=== PATIENT | female | born 1945 | race Caucasian/White ===

== ENCOUNTER 2019-05-17 14:41 | Inpatient (IN) | payer MEDICARE, OTHER ==
[~2019-05-17] VITALS: Ht 157.5 cm; Wt 100.1 kg
--- NOTE | ~2019-05-17 | CON ---
[address] [address] CONSULTATION Name: RAJWINDER MONTALVO Room: [address] IN .R.#: [id number] Admission: 05/17/19 Attend Phys: Jayden Hair MD Discharge: Date of : 49 Report #: [id number] THIS REPORT FOR: //name// CC: Tiffany Hair DICTATED BY: Mary Amador [facility] DATE OF SERVICE: 05/18/2019 Please note at the time of this dictation, the patient was seen and physically examined by myself. REASON FOR CONSULTATION: Nausea and vomiting and explosive diarrhea. HISTORY OF PRESENT ILLNESS: This is a 73-year-old female who presented to the Emergency Room with having some mid substernal chest pain with left shoulder radiation associated with radiation to the jaw. She states this occurred at rest and persisted since 1:00 yesterday afternoon before she was seen in the Emergency Room. She states that was waxing and waning in quality at that time. The patient does have a history of SVT and takes metoprolol for that. The patient recently did see Dr. Edmonds in the office on 05/15. She is scheduled for an outpatient EGD on 06/07. The patient states that her chest pain has gone away, but then she started having nausea and vomiting throughout the night with explosive diarrhea, she states this is a typical cycle for her that when she does not have anything to eat or drink solid food mercado. After 5-6 hours, she will start beginning to have nausea and vomiting with this explosive diarrhea, denying any bright red blood or any coffee ground emesis or any black tarry stools noted with her diarrhea. She states this always happens when this occurs and that once she starts gradually adding solid food back into her diet, her symptoms go away. She states this has been happening for a very long period of time. Currently, it was recommended by Cardiology that she has a heart catheterization, but she did not want to do that. She was agreeable to have an echocardiogram and will discuss having a heart catheterization as an outpatient. Did discuss with the patient that since she came in with chest pain that she would need to be fully evaluated by Cardiology and we will need to obtain cardiac clearance prior to her having an EGD done on 06/07 or this may need to be postponed. ALLERGIES: GUAIFENESIN, BENADRYL, ZOFRAN, AND CIPRO. MEDICATIONS: From home include metoprolol, Pepcid and acidophilus. PAST MEDICAL HISTORY: Type 2 diabetes, complex pain syndrome, SVT, depression, anxiety. She has got valvular heart [place] [address] CONSULTATION Name: RAJWINDER MONTALVO Room: [address] IN [facility]#: [id number] Admission: 05/17/19 Attend Phys: Jayden Hair MD Discharge: Date of : 49 Report #: [id number] PAST SURGICAL HISTORY: Cholecystectomy, appendectomy, tonsil and adenoidectomy. FAMILY HISTORY: Noncontributory. SOCIAL HISTORY: Denies any alcohol, tobacco or illegal drug use. REVIEW OF SYSTEMS: Twelve-point review of systems is essentially negative except what is mentioned in the HPI. PHYSICAL EXAMINATION: VITAL SIGNS: Temperature 37.1, pulse 96, respirations 17, blood pressure 153/76. HEART: Regular rate and rhythm. LUNGS: Clear. ABDOMEN: Soft, positive bowel sounds in all 4 quadrants with no masses or tenderness noted. LABORATORY DATA: Hemoglobin 13.6, white count 8.9, platelets 234. PT 10.2, INR is 1, GFR is 71. LFTs are completely normal. Troponin was negative. IMPRESSION: 1. Nausea and vomiting. 2. Diarrhea occurs when nausea and vomiting occur. 3. Chest pain, which is resolved. PLAN: 1. No endoscopic evaluation warranted at this time until she has her cardiac workup performed. 2. We will advance her diet to soft. 3. The patient is already scheduled for an outpatient EGD on 06/07, but again will need to have a cardiac clearance since she was just here being seen for chest pain prior to this procedure. The patient is made aware of this as well. Thank you for allowing us to participate in this patient's care. Please do not hesitate to call with any questions in regard to this consult. By: [id number] Edmonds DO /candace
[~2019-05-17 14:41] MED LIST: IBUPROFEN 800800 M1; KEFLEX500 MG; MULTIVITAMINS; PROAIR HFA8.5 GM IH; SERTRALINE HCL50 MG; TOPROL XL100 MG PO; TRILEPTAL 300300 MG PO; ZOFRAN ODT4 MG PO; ZPAK PO
[2019-05-17 14:45] VITALS: BP 178/73
[2019-05-17] MEDS ORDERED: TRILEPTAL600 MG PO (14:54)
[2019-05-17] MEDS ORDERED: ACIDOPHILUS1 EAC4 PO (14:55)
[2019-05-17] MEDS ORDERED: PEPCID40 MG PO (14:55)
[2019-05-17 16:05] LABS: ABSOLUTE EOSINOPHILS 0.1 thou/uL (0.0-0.7); ABSOLUTE MONOCYTES 0.6 thou/uL (0.0-1.2); ABSOLUTE NEUTROPHILS 5.1 thou/uL (1.6-8.1); BASOPHILS 0.5 %; EOSINOPHILS 0.9 %; HEMOGLOBIN 13.6 gm/dL (12.0-15.0); LYMPHOCYTES 34.1 %; MCH 28.1 pg (26.0-34.0); MCV 82.7 fL (80.0-100.0); MPV 7.6 fl. (7.2-11.1); NUCLEATED RBCS 0 /100WBC; PLATELET COUNT* 234 thou/uL (150-400); POLYS 57.5 %; RBC 4.84 mil/uL (4.20-5.00); RDW-CV 13.4 % (10.5-14.5); WBC 8.9 thou/uL (4.0-11.0)
[2019-05-17 16:10] LABS: ANION GAP 9 mmol/L (7-16); BUN 12 mg/dL (7-18); CALCIUM 9.3 mg/dL (8.5-10.1); CHLORIDE 96 mmol/L (98-107); CO2 28 mmol/L (21-32); CREATININE 0.8 mg/dL (0.6-1.3); GLUCOSE 196 mg/dL (70-99); POTASSIUM 3.6 mmol/L (3.5-5.1); SODIUM 133 mmol/L (136-145)
[2019-05-17 16:15] LABS: PROTIME 10.2 Seconds (9.20-11.50)
[2019-05-17 16:20] LABS: ALBUMIN 3.5 g/dL (3.4-5.0); ALKALINE PHOSPHATASE 50 U/L (46-116); LIPASE 90 U/L (73-393); SGOT 13 U/L (15-37); SGPT 23 U/L (30-65); TOTAL BILIRUBIN 0.3 mg/dL (<0.1-1.0); TOTAL PROTEIN 7.1 g/dL (6.4-8.2); TROPONIN-I LEVEL <0.06 ng/mL (<0.06)
[2019-05-17 20:30] VITALS: BP 160/80
[2019-05-17 20:35] VITALS: BP 154/78
[2019-05-18 04:00] VITALS: BP 153/76
[2019-05-18 04:48] LABS: CHOLESTEROL 258 mg/dL (<200); HDL CHOLESTEROL 51 mg/dL (>40); LDL CHOLESTEROL 185 mg/dL (<100); TC:HDL 5.1 Ratio (Not establshd); TRIGLYCERIDE 111 mg/dL (<150); VLDL 22 mg/dL (<40)
[2019-05-18 04:57] LABS: SERUM ASSESSMENT CLEAR
--- NOTE | 2019-05-18 06:10 | NUR ---
PT ALERT AND ORIENTED. VSS ON 2L NC. ADMISSION HX AND ASSESSMENT DOCUMENTED. MEDS GIVEN PER EMAR. SO HYDRALAZINE HAVE NOT BEEN INDICATED. THERE NONE HAS BEEN GIVEN THIS SHIFT. NPO AFTER MIDNIGHT. CARDIOLOGY CONSULT CALLED IN. MED RECONCILIATION DONE. PT INSISTED ON GETTING NIGHT DOSE OF TRILEPTAL LAST NIGHT. SAID SHE WOULD LEAVE AMA IF NOT BROUGHT TO HER. DR ERWIN NOTIFIED. ORDER PUT IN. PT GIVEN TRILEPTAL. BP CHECKED MANUALLY UPON ADMISSION PER PT'S REQUEST. PT COMPLAINED OF HEADACHE BUT REFUSED MEDS FOR IT. ICE PACK PROVIDED PER PT'S REQUEST. CALL LIGHT WITHIN REACH. PT CALLS OUT FREQUENTLY. HOURLY ROUNDINGS MADE. WILL CONTINUE TO MONITOR.
[2019-05-18 09:02] VITALS: BP 154/71
--- NOTE | 2019-05-18 09:15 | NUR ---
ASSUMED CARE AFTER REPORT. OX4, VERY ANXIOUS, ABLE TO COMMUNICATE BASIC NEEDS. 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 O2 SATS 98% 1L. STATES "I HAVE BEEN THROWING EVERY TWO HOURS UP ALL NIGHT." EMESIS BAG AT BS IS 1/2 FULL WITH KLEENEX AND SMALL AMOUNT OF LIQUID, ESTIMATED >20 MLS. REFUSING PHENERGAN. NO C/O CHEST PAIN OR SOA. CALL LIGHT WITHIN REACH.
--- NOTE | 2019-05-18 10:15 | NUR ---
CONTACTED DR. BROOKS TO INFORM PATIENT HAS DECLINED CATH TODAY. PATIENT STATES, "I NEED TO GO HOME AND GET MY AFFAIRS IN ORDER AND MAKE SURE MY FRIEND CAN TAKE CARE OF ME WHEN I GET HOME. THEY CAN SCHEDULE THE CATH LATER." PATIENT AGREEABLE TO ECHO. PATIENT STATES "I NEED TO GET THIS EXPLOSIVE DIARRHEA AND THROWING UP TAKEN CARE OF BEFORE I GO FOR A CATH." PATIENT HAD ONE EPISODE OF URGENCY, BM LOOSE BUT FORMED. DRY HEAVES WITNESSED WHILE PATIENT ON TOILET. CONTINUES TO REFUSE PHERGAN. PATIENT STATES "FOR 50 YEARS, I KNOW WHAT WILL FIX THIS. I NEED SOME SOLID FOOD." GI EMPLOYMENT AGENCY MANAGER TO ROOM TO ASSESS PATIENT. OK FOR PATIENT TO ADVANCE TO SOFT DIET PER GI EMPLOYMENT AGENCY MANAGER.
--- NOTE | 2019-05-18 10:34 | EKG ---
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 : 1945 Requested By: Katlyn Singh Order Number: [id number] MD: Johnnie Lee Measurements Intervals [place] Rate: 78 P: 49 ID: 167 QRS: 65 QRSD: 164 T: 4 QT: 420 QTc: 479 Interpretive Statements Sinus rhythm Right bundle branch block Compared to ECG 01/07/2011 10:52:57 Ventricular premature complex(es) no longer present Electronically Signed On 05-18-2019 10:34:29 CDT by Johnnie Lee [email or web address] <ELECTRONICALLY SIGNED> By: Johnnie Lee MD, [facility] 05/18/19 1034 1449 1449 Johnnie Lee MD, [facility] /EPI
--- NOTE | 2019-05-18 11:47 | NUR ---
MET WITH PT TO DISCUSS HOME SITUATION/DC PLANNING. PT LIVES ALONE, HAS FAMILY OUT OF STATE. PT STATES SHE HAS GOOD FRIENDS THAT SHE CAN CALL ON FOR ASSISTANCE AND ONE THAT HELPS CLEAN HER HOME. PT FOLLOWS WITH DR JOYNER. HASN'T HAD HH, DISCUSSED. PT STATES SHE HAS HAD INCREASED DIFFICULTY MANAGING MEALS. GAVE HER INFO ON [employer], MEALS ON WHEELS AND [employer]. SHE WANTS TO CONSIDER THOSE. ALSO GAVE INFO AND ED ON DPOA, LEFT WITH PT. SHE WILL CONTACT IF WANTS TO COMPLETE. PT IS INDEPENDENT, HAS WALKER. 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 PT ANXIOUS AND EMOTIONAL TODAY, SUPPORT GIVEN, PT VOICED APPRECIATION. CM TO FOLLOW
[2019-05-18 12:00] VITALS: BP 177/67
--- NOTE | 2019-05-18 14:49 | 2DMMODE ---
[address] [address] 2 D/M-MODE ECHOCARDIOGRAM Name: RAJWINDER MONTALVO Room: [place] [address] ADM IN [facility]#: [id number] Admission: 05/17/19 Attend Phys: Jayden Hair, Discharge: Date of : 49 Date of Service: 05/18/19 1449 Report #: [id number] THIS REPORT FOR: //name// APPROVED REPORT Study performed: 05/18/2019 13:43:50 EXAM: Comprehensive 2D, Doppler, and color-flow Echocardiogram Patient Location: In-Patient Room #: [facility] Status: routine BSA: 1.99 HR: 98 bpm BP: 177/67 mmHg Rhythm: NSR Other Information Study Quality: Good Indications Murmur 2D Dimensions IVSd: 9.52 (7-11mm) LVOT Diam: 19.81 (18-24mm) LVDd: 46.81 mm PWd: 9.82 (7-11mm) Ascending Ao: 28.57 (22-36mm) LVDs: 23.95 (25-40mm) Aortic Root: 30.33 mm Volumes Left Atrial Volume (Systole) LA ESV Index: 25.80 mL/m2 Aortic Valve AoV Peak Parth.: 2.38 m/s AO Peak Gr.: 22.60 mmHg LVOT Max P.04 mmHg AO Mean Gr.: 12.67 mmHg LVOT Mean P.79 mmHg LVOT Max V: 1.42 m/s AO V2 VTI: 44.70 cm LVOT Mean V: 0.89 m/s NARAYAN (VTI): 1.98 cm2 LVOT V1 VTI: 28.74 cm AI Pendleton: 2.39 m/s2 AI PHT: 417.78 ms Mitral Valve MV Mean Gr.: 5.96 mmHg E/A Ratio: 0.71 [place] [address] 2 D/M-MODE ECHOCARDIOGRAM Name: RAJWINDER MONTALVO Room: [address] IN .R.#: [id number] Admission: 05/17/19 Attend Phys: Jayden Hair, Discharge: Date of : 49 Date of Service: 05/18/19 1449 Report #: [id number] MV Decel. Time: 153.99 ms MV E Max Parth.: 1.31 m/s MV PHT: 44.66 ms MVA (PHT): 4.93 cm2 TDI E/Lateral E': 16.38 E/Medial E': 14.56 Medial E' Parth.: 0.09 m/s Lateral E' Parth.: 0.08 m/s Pulmonary Valve PV Peak Parth.: 1.01 m/s PV Peak Gr.: 4.12 mmHg Left Ventricle The left ventricle is normal size. There is normal LV segmental wall motion. There is normal left ventricular wall thickness. Left ventricular systolic function is normal. The left ventricular ejection fraction is within the normal range. LVEF is 65-70%. Grade I - abnormal relaxation pattern. Right Ventricle The right ventricle is normal size. The right ventricular systolic function is normal. Atria The left atrium size is normal. The right atrium size is normal. Aortic Valve Mild aortic valve sclerosis. Mild aortic regurgitation. Mild aortic stenosis. Mitral Valve There is mitral annular calcification. Trace mitral regurgitation. No evidence of mitral valve stenosis. Tricuspid Valve The tricuspid valve is normal in structure. There is no tricuspid valve regurgitation noted. Pulmonic Valve Pulmonic valve is not well visualized. There is no pulmonic valvular regurgitation. Great Vessels The aortic root is normal in size. IVC [place] [address] 2 D/M-MODE ECHOCARDIOGRAM Name: KATIARAJWINDER L Room: [address] IN [facility]#: [id number] Admission: 05/17/19 Attend Phys: Jayden Hair, Discharge: Date of : 49 Date of Service: 05/18/19 1449 Report #: [id number] collapses >50% with inspiration. Pericardium There is no pericardial effusion. <Conclusion> LVEF is 65-70%. Mild aortic valve sclerosis. Mild aortic regurgitation. <ELECTRONICALLY SIGNED> By: Johnnie Lee MD, [facility] 05/18/19 1449 1449 144 Johnnie Lee MD, [facility] /INF
[2019-05-18 15:38] VITALS: BP 169/74
--- NOTE | 2019-05-18 18:00 | NUR ---
PATIENT ATE ABOUT 1/3 OF LUNCH AND DINNER. SLEPT IN BETWEEN MEALS. NO C/O NAUSEA SINCE RECEIVING PHENERGAN AT 1720. NO EMESIS OR DRY HEAVES SINCE 1300. HAD A SECOND EPISODE OF URGENCY WITH LOOSE STOOL SIMILAR TO MORNING EPISODE. NOT DIARRHEA. <10 MLS EMESIS THROUGHOUT AFTERNOON. PATIENT NOT ANXIOUS TOWARD END OF SHIFT. WILL BE NPO FOR POSSIBLE EGD TOMORROW PER GI, IF CARDIOLOGY ALLOWS.
[2019-05-18 20:00] VITALS: BP 154/63
[2019-05-19 00:18] VITALS: BP 135/69
--- NOTE | 2019-05-19 03:11 | NUR ---
ASSUMED PT CARE AT 1910. PT AAOX4, SR WITH BBB ON UNDERCAR SPECIALIST. DENIES CHEST PAIN THIS SHIFT. PT NPO AFTER MIDNIGHT FOR POSSIBLE EGD IN AM. HOURLY ROUNDING COMPLETED, CALL LIGHT WITHIN REACH.
[2019-05-19 04:17] VITALS: BP 132/58
[2019-05-19 08:00] VITALS: BP 156/69
[2019-05-19] MEDS ORDERED: NITROGLYCERIN0.4 MG SUBLING (08:39)
[2019-05-19] MEDS ORDERED: ASPIRIN81 M2 PO (08:39)
[2019-05-19] MEDS ORDERED: PHENERGAN 25 MG25 M1 PO (08:39)
[2019-05-19] MEDS ORDERED: TRILEPTAL300 MG PO (08:39)
[2019-05-19 10:19] VITALS: BP 156/69
[2019-05-19 12:00] VITALS: BP 136/60
--- NOTE | 2019-05-19 13:27 | NUR ---
VSS, ASSUMED CARE IN THE AM, ASSESSMENT PERFORMED AND CHARTED, FALL PRECAUTIONS IN PLACE AND CALL LIGHT IN REACH, PT IS A&O4 AND HAS SOME ANXIETY AT TIMES, SHE IS ON RA AND IS TRACING SR ON THE MONITOR, PT DENIES ANY PAIN AT THIS TIME. PT IS UP AD [place] AND HER GAOL IS TO MEET WITH GI AND CARDIO AND D/C TO HOME WITH OUT PT APPOINTMENTS, WILL FOLLOW WITH PLAN OF CARE AND DISCHARGE
[2019-05-19 14:49] VITALS: BP 156/69
--- NOTE | 2019-05-19 15:19 | NUR ---
VSS, PT HAS BEEN GIVEN DISCHARGE PAPERS, TOOK OUT IV AND TELE MONITOR, I HELP GATHERED BELONGINGS, PROVITED D/C INSTRUCTIONS AND MEDICATION SCRIPTS, DENIES ANY QUESTIONS SHE WAS TAKEN OU BY WHEEL CHAIR TO CAR BY STAFF, PT WAS GIVEN HER HOME MEDS BACK FROM PHARMACY, HOURLY ROUNDS COMPLETED,
--- NOTE | 2019-05-21 12:39 | CON ---
[address] [address] CONSULTATION Name: RAJWINDER MONTALVO Room: [address] IN M.R.#: [id number] Admission: 05/17/19 Attend Phys: Jayden Hair MD Discharge: 05/19/19 Date of : 49 Report #: [id number] THIS REPORT FOR: //name// CC: Tiffany Hair DATE OF SERVICE: 05/18/2019 CARDIOLOGY CONSULTATION HISTORY OF PRESENT ILLNESS: The patient is a 73-year-old single white female who I was asked to see in the hospital after she complained of chest pain. The patient has a previous history of PSVT. She previously was followed by Dr. Alan. She was actually admitted here to [place] back in 1997 with palpitations. She required adenosine to convert. It went up to over 200 beats per minute. It was suggestive reentry AV node tachycardia. She actually had to be cardioverted. She was sent home on metoprolol. She has actually done well since that time. She apparently has never had a heart catheterization. Recently, she did undergo a coronary calcium scoring that was abnormal. She was doing well until 2 days ago, she was at home, felt her heart beating irregular lasted only a few seconds. She had no syncope. Last night, the patient was at home, she felt a pain in her chest and her arm, she became short of breath. She came here to [place] and admitted. She then became nauseated and vomited. I was asked to see her for further evaluation and treatment. She denied the pain being related to food. She had no blood in the vomit. She has had no recent fever or cough. Denied trauma to her chest. She denied any rash. She is not very active. PAST SURGICAL AND MEDICAL HISTORY: She has had previous tonsillectomy, appendectomy, and cholecystectomy. She has a history of hypertension. No history of diabetes or hyperlipidemia. MEDICATIONS: Consist of Pepcid, metoprolol, Trileptal for chronic pain syndrome. In the past, she was on losartan HCT, but discontinued because of side effects. She has a history of hyperlipidemia, but is not interested in taking statin drugs. ALLERGIES: SHE HAS A PREVIOUS INTOLERANCE TO SULFA DRUGS. FAMILY HISTORY: Negative for heart disease. SOCIAL HISTORY: She is single. She is not working at this time. Lives in [place]. Quit smoking years ago. No alcohol abuse. REVIEW OF SYSTEMS: She has had no history of stroke. She [place] [address] CONSULTATION Name: KATIARAJWINDER Room: [address] IN [facility].#: [id number] Admission: 05/17/19 Attend Phys: Jayden Hair MD Discharge: 05/19/19 Date of : 49 Report #: [id number] She is scheduled for an EGD later this month. No history of liver disease, kidney disease, cancer, psychiatric illness, chronic skin condition. PHYSICAL EXAMINATION: GENERAL: Revealed an elderly female lying in bed. She appeared in no acute distress. VITAL SIGNS: She had a blood pressure of 150/70, pulse is 80, and she is afebrile. HEENT: She is anicteric. Conjunctivae are pink. Mucous membranes are moist. NECK: Veins nondistended. No carotid bruits. Neck is supple. CHEST: Clear to auscultation. CARDIOVASCULAR: Regular rate and rhythm. ABDOMEN: Soft. EXTREMITIES: Had no edema. Dorsalis pedis pulse cannot be palpated. SKIN: Cool and dry. NEUROLOGIC: Nonfocal. LABORATORY DATA: Her ECG shows a sinus rhythm with a right bundle branch block. Her workup, she had a portable chest x-ray showed normal heart size and clear lung araya. Her lab work last night; sodium 133, creatinine 0.8, and glucose was 196. Liver function studies were normal. Troponin 0.06. Cholesterol 258, triglyceride 111, HDL 51, and LDL 185. Her white blood cell count 8.9 and hemoglobin 13.6. IMPRESSION RECOMMENDATIONS: 1. Possible unstable angina. Recommend cardiac catheterization. 2. Hypertension. The patient is on a beta krystal. 3. History of supraventricular tachycardia. No clinical recurrences on a beta krystal. 4. Carotid plaque. The patient had a recent Doppler. 5. Hyperlipidemia. The patient is not interested in taking a statin drug. 6. Chronic pain syndrome. <ELECTRONICALLY SIGNED> By: Johnnie Lee MD, FACC 05/21/19 1239 0901 2033Dshreya Lee MD, FACC /nt
== END 2019-05-19 15:30 | disposition home or self-care (01) | DRG 303 ==
LOC: M.ERS 14:41 → M.TBA-ER 18:54 → M.2W 18:54
PROVIDERS: Personal Emergency Response Attendant; ADMIT Internal Medicine
DX: I25.110 Atherosclerotic heart disease of native coronary artery with unstable angina pectoris (principal); I47.1 Supraventricular tachycardia; Z68.41 Body mass index [BMI] 40.0-44.9, adult; E11.9 Type 2 diabetes mellitus without complications; G57.70 Causalgia of unspecified lower limb; F32.9 Major depressive disorder, single episode, unspecified; F41.9 Anxiety disorder, unspecified; I10 Essential (primary) hypertension; I65.29 Occlusion and stenosis of unspecified carotid artery; E78.5 Hyperlipidemia, unspecified; G89.4 Chronic pain syndrome; I45.10 Unspecified right bundle-branch block; E66.9 Obesity, unspecified; K27.9 Peptic ulcer, site unspecified, unspecified as acute or chronic, without hemorrhage or perforation; K21.9 Gastro-esophageal reflux disease without esophagitis; I35.8 Other nonrheumatic aortic valve disorders; I35.1 Nonrheumatic aortic (valve) insufficiency; Z79.82 Long term (current) use of aspirin; Z90.49 Acquired absence of other specified parts of digestive tract; Z88.8 Allergy status to other drugs, medicaments and biological substances; Z87.891 Personal history of nicotine dependence; Z79.899 Other long term (current) drug therapy

== ENCOUNTER → 2019-06-19 | Outpatient (CLI) | payer MEDICARE, OTHER ==
[~2019-06-19] MED LIST changes: +ACIDOPHILUS1 EAC4 PO; +ASPIRIN81 M2 PO; +NITROGLYCERIN0.4 MG SUBLING; +PEPCID40 MG PO; +PHENERGAN 25 MG25 M1 PO; +TRILEPTAL300 MG PO; +TRILEPTAL600 MG PO
== END ==
LOC: M.RAD 05-30 09:00
DX: Z53.8 Procedure and treatment not carried out for other reasons (principal); K22.4 Dyskinesia of esophagus; K22.2 Esophageal obstruction; R13.10 Dysphagia, unspecified

== ENCOUNTER 2020-12-25 02:37 | Observation (INO) | payer MEDICARE, OTHER ==
[~2020-12-25] VITALS: Ht 157.5 cm; Wt 90.7 kg
[2020-12-25 02:39] VITALS: BP 206/94
[2020-12-25] MEDS ORDERED: LIPITOR40 MG PO (02:47)
[2020-12-25] MEDS ORDERED: PLAVIX 75 MG TA75 MG PO (02:47)
[2020-12-25] MEDS ORDERED: MAGNESIUM250 M1 PO (02:47)
[2020-12-25] MEDS ORDERED: NORVASC5 MG PO (02:47)
[2020-12-25] MEDS ORDERED: TOBRADEX ST EYE5 ML EA. EYE (02:48)
[2020-12-25] MEDS ORDERED: AUGMENTIN 875-1 EACH PO (02:48)
[2020-12-25 03:14] LABS: ABSOLUTE BASOPHILS 0.1 thou/uL (0.0-0.2); ABSOLUTE EOSINOPHILS 0.1 thou/uL (0.0-0.7); ABSOLUTE LYMPHOCYTES 2.3 thou/uL (0.8-5.3); ABSOLUTE MONOCYTES 0.8 thou/uL (0.0-1.2); ABSOLUTE NEUTROPHILS 6.1 thou/uL (1.6-8.1); BASOPHILS 0.7 %; HEMOGLOBIN 14.6 gm/dL (12.0-15.0); LYMPHOCYTES 24.4 %; MCH 27.5 pg (26.0-34.0); MCHC 33.2 g/dL (28.0-37.0); MCV 82.7 fL (80.0-100.0); MONOCYTES 8.5 %; MPV 7.2 fl. (7.2-11.1); NUCLEATED RBCS 0 /100WBC; PLATELET COUNT* 210 thou/uL (150-400); POLYS 65.4 %; RBC 5.32 mil/uL (4.20-5.00); RDW-CV 14.1 % (10.5-14.5); WBC 9.3 thou/uL (4.0-11.0)
[2020-12-25 03:22] LABS: CALCIUM 9.7 mg/dL (8.5-10.1); POTASSIUM 3.3 mmol/L (3.5-5.1)
[2020-12-25 03:31] LABS: ALBUMIN 3.7 g/dL (3.4-5.0); APTT 24.2 Seconds (25.0-31.3); INR 0.9; PROTIME 10.1 Seconds (9.20-11.50); TOTAL BILIRUBIN 0.3 mg/dL (<0.1-1.0); TOTAL PROTEIN 7.6 g/dL (6.4-8.2)
[2020-12-25 10:00] LABS: CALCIUM 9.5 mg/dL (8.5-10.1); CREATININE 0.8 mg/dL (0.6-1.3)
--- NOTE | 2020-12-25 10:01 | EKG ---
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: : 1945 Requested By: Katlyn Singh Order Number: [id number] MD: Johnnie Lee Measurements Intervals [place] Rate: 87 P: 69 WV: 182 QRS: 66 QRSD: 165 T: 17 QT: 416 QTc: 501 Interpretive Statements Sinus rhythm LAE, consider biatrial enlargement Right bundle branch block Compared to ECG 05/17/2019 14:49:06 No significant changes Electronically Signed On 12-25-2020 10:01:36 CDT by Johnnie Lee [email or web address] <ELECTRONICALLY SIGNED> By: Johnnie Lee MD, [facility] 12/25/20 1001 2 2 Johnnie Lee MD, [facility] /EPI
[2020-12-25 10:03] LABS: PHOSPHORUS* 3.4 mg/dL (2.5-4.9)
[2020-12-25 10:18] VITALS: BP 198/88
[2020-12-25 10:25] VITALS: BP 153/96
[2020-12-25 16:30] VITALS: BP 180/87
[2020-12-25 20:00] VITALS: BP 156/65
[2020-12-25 23:55] VITALS: BP 160/77
[2020-12-26 04:04] VITALS: BP 136/76
[2020-12-26 07:59] VITALS: BP 159/74
--- NOTE | 2020-12-26 09:05 | CON ---
[address] [address] CONSULTATION Name: RAJWINDER MONTALVO Room: [address] Cory Styles#: [id number] Admission: 12/25/20 Attend Phys: Jensen Morejon MD Discharge: Date of : 49 Report #: [id number] THIS REPORT FOR: cc: Tiffany Newman MD, Diane S. MD ~ Marcos Shafer MD [facility] CARDIOLOGY CONSULT INDICATION: Palpitations and chest discomfort. HISTORY OF PRESENT ILLNESS: The patient is a very pleasant 75-year-old white female with history of paroxysmal supraventricular tachycardia that has been well controlled on Toprol for many years. She has a history of coronary artery disease based on a positive calcium score. Stress testing in 2019 was unremarkable. The patient has been feeling ill for the last couple of days. She reports having significant palpitations yesterday on and off throughout the day, described as a slow pounding heart rate unlike her previous SVT. She was found to be profoundly hypokalemic on admission through the Emergency Room. Her potassium has been replaced. Her arrhythmia appears to have subsided at this point. Her troponins are unremarkable x 2 sets. The third set is pending. EKG shows sinus rhythm with right bundle branch block. No significant ST segment changes were noted. She reports some midsternal chest discomfort that is very mild and fleeting. It does not sound like acute coronary syndrome. PAST MEDICAL HISTORY: 1. Coronary artery disease based on positive calcium score. 2. Paroxysmal supraventricular tachycardia. 3. Hypertension. 4. GERD. 5. Hyperlipidemia. 6. Type 2 diabetes mellitus, PAST SURGICAL HISTORY: 1. Tonsillectomy. 2. Appendectomy. 3. Cholecystectomy. ALLERGIES: SULFA DRUGS, CIPROFLOXACIN, DIPHENHYDRAMINE, ZOFRAN AND GUAIFENESIN. HOME MEDICATIONS: Amlodipine 5 mg daily, atorvastatin 40 mg daily, clopidogrel 75 mg daily, lactobacillus 2 tablets q.i.d., Toprol-XL 100 mg 1/2 tablet b.i.d., Trileptal 300 mg 3 tablets p.o. b.i.d., [place]ra[place] [address] CONSULTATION Name: RAJWINDER MONTALVO Room: [address]#: [id number] Admission: 12/25/20 Attend Phys: Jensen Morejon MD Discharge: Date of : 49 Report #: [id number] REVIEW OF SYSTEMS: A 14-point review of systems is positive for nausea, vomiting, diarrhea, chest discomfort, palpitations, infected lacrimal gland, headaches, dizziness, insomnia and anorexia. Otherwise, unremarkable. PHYSICAL EXAMINATION: VITAL SIGNS: Blood pressure 180/87, pulse 104. GENERAL: This is a pleasant female who appears in mild distress. HEENT: Head is normocephalic, atraumatic. She has had infected, swollen lacrimal gland in the right eye. Extraocular muscles intact. Mucous membranes are moist. NECK: Without jugular venous distention. CHEST: Clear. CARDIOVASCULAR: Reveals a regular rhythm. I do not appreciate gallop or murmur. ABDOMEN: Soft and nontender. EXTREMITIES: Shows no edema. SKIN: Dry. LABORATORY DATA: A 12-lead EKG shows sinus rhythm with right bundle branch block without acute ST or T-wave abnormality. IMPRESSION AND RECOMMENDATIONS: 1. Atypical chest pain. We will obtain echocardiogram. I doubt this represents acute coronary syndrome. No further testing at this time recommended. Complete serial troponins. 2. Hypertension. Resume Toprol-XL twice daily. May need additional medication. We will give hydralazine p.r.n. prior to other adjustments. 3. Dyslipidemia. Continue atorvastatin at current home dose. 4. Type 2 diabetes mellitus per hospitalist. 5. Infected lacrimal gland. 6. Palpitations. Pts description sounds like pvc's. Symptoms improved after correction of hypokalemia. No further treatment at this time. 7. Hypokalemia. Corrected with supplementation. <ELECTRONICALLY SIGNED> By: Marcos Shafer MD, FACC 12/26/2005 1836 [id number] Shafer MD, FACC /nt
[2020-12-26 12:13] VITALS: BP 154/75
[2020-12-26 16:53] VITALS: BP 155/59
[2020-12-27 00:07] VITALS: BP 155/59
[2020-12-27 04:29] VITALS: BP 150/60
[2020-12-27 08:00] VITALS: BP 162/77
[2020-12-27 12:10] VITALS: BP 154/70
[2020-12-27] MEDS ORDERED: AMPICILLIN TRI250 MG PO (15:49)
[2020-12-27 16:07] VITALS: BP 154/70
[2020-12-27 16:08] VITALS: BP 166/86
== END 2020-12-27 18:30 | disposition home or self-care (01) ==
LOC: M.ERS 02:37 → M.TBA-ER 05:12 → M.2W 10:28
PROVIDERS: Family Medicine; Personal Emergency Response Attendant; ADMIT Internal Medicine; ATTEND Internal Medicine
DX: R07.89 Other chest pain (principal); F32.9 Major depressive disorder, single episode, unspecified; F41.9 Anxiety disorder, unspecified; I10 Essential (primary) hypertension; I47.1 Supraventricular tachycardia; G56.40 Causalgia of unspecified upper limb; I45.10 Unspecified right bundle-branch block; K27.9 Peptic ulcer, site unspecified, unspecified as acute or chronic, without hemorrhage or perforation; G56.00 Carpal tunnel syndrome, unspecified upper limb; K21.9 Gastro-esophageal reflux disease without esophagitis; I35.8 Other nonrheumatic aortic valve disorders; R11.0 Nausea; G89.29 Other chronic pain; E66.01 Morbid (severe) obesity due to excess calories; I16.0 Hypertensive urgency; R51.9 Headache, unspecified; J32.9 Chronic sinusitis, unspecified; H04.321 Acute dacryocystitis of right lacrimal passage; Z87.891 Personal history of nicotine dependence; Z20.822 Contact with and (suspected) exposure to COVID-19; Z98.890 Other specified postprocedural states; Z90.49 Acquired absence of other specified parts of digestive tract

== ENCOUNTER 2021-05-02 22:57 | Inpatient (IN) | payer MEDICARE, OTHER ==
[~2021-05-02] VITALS: Ht 157.5 cm; Wt 69.4 kg
--- NOTE | ~2021-05-02 | CON ---
[address] [address] CONSULTATION Name: RAJWINDER MONTALVO Room: [address] Cory Styles#: [id number] Admission: 05/03/21 Attend Phys: Ryan Nair Discharge: Date of : 49 Report #: [id number] THIS REPORT FOR: cc: Liliam Lopez MD, Lin W. MD Khosla, Parveen K. MD ~ DATE OF CONSULTATION: 05/03/2021 HISTORY OF PRESENT ILLNESS: This is a 75-year-old female patient who was evaluated by me for strokes she had in the past, that is not her current problem. Her current problem is hyponatremia, which is being addressed. She has some pain management issues. She is on Trileptal. As far as stroke is concerned, she gives a history that she had 3 strokes and they were mainly associated with ataxia. They did the regular testing on her first. That did not find anything. Then, they sent her to a neuroophthalmologist. He recommended MRI with thin slices, which only one of the has. According to her, first they hold her that the MRI was normal, but then they came back and told her that she had a stroke. I do not have any of those records and that was at [facility], in a tertiary care center. She has no symptom associated with this. Present symptoms are that she has generalized fatigue, she has abdominal issues, she says she has some reflex sympathetic dystrophy, she had some noncardiac chest pain and she has a history of diabetes. All her records are in [facility]. 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 She has a history of diabetes, complex pain syndrome, SVT, depression, anxiety, heart wall disease, hypertension, carpal tunnel and a history of CVA, only presented with walking difficulty. FAMILY HISTORY: Unremarkable. SOCIAL HISTORY: She does not drink alcohol. She is anxious. She is alert. She asked whether a CT angiogram can be ordered. She taught CT angiogram was going to be the whole body. She does not know where CT angiogram was being done. She moves all 4 extremities. Her position sense is intact. I did not make her walk. Cardiorespiratory examination is unremarkable. IMPRESSION: I discussed with the patient that if she has been to [facility], they probably did all the workup on her. I can repeat a noncontrast CT of the head, but I would like to see what workup was done. If has done basic workup, then I think the best for her will be to go back to [facility] because we do not have those facilities what she is talking about and if the case is so complex, the best is for her to follow up with [facility]. I will try to get the record to make sure there is no [place] [address] CONSULTATION Name: RAJWINDER MONTALVO Room: [address] Cory Styles#: [id number] Admission: 05/03/21 Attend Phys: Ryan Nair Discharge: Date of : 49 Report #: [id number] order a noncontrast CT of the head. Thank you very much for this referral. By: [id number] Chandra MD /candace
[~2021-05-02 22:57] MED LIST changes: +AMPICILLIN TRI250 MG PO; +AUGMENTIN 875-1 EACH PO; +LIPITOR40 MG PO; +MAGNESIUM250 M1 PO; +NORVASC5 MG PO; +PLAVIX 75 MG TA75 MG PO; +TOBRADEX ST EYE5 ML EA. EYE
[2021-05-02 23:09] VITALS: BP 164/71
[2021-05-02 23:45] LABS: ABSOLUTE BASOPHILS 0.1 thou/uL (0.0-0.2); ABSOLUTE EOSINOPHILS 0.1 thou/uL (0.0-0.7); ABSOLUTE LYMPHOCYTES 1.8 thou/uL (0.8-5.3); ABSOLUTE MONOCYTES 0.8 thou/uL (0.0-1.2); BASOPHILS 0.6 %; EOSINOPHILS 0.8 %; HEMATOCRIT 31.7 % (37.0-47.0); HEMOGLOBIN 11.7 gm/dL (12.0-15.0); LYMPHOCYTES 16.6 %; MCH 31.5 pg (26.0-34.0); MCHC 36.9 g/dL (28.0-37.0); MCV 85.4 fL (80.0-100.0); MONOCYTES 7.1 %; MPV 6.8 fl. (7.2-11.1); NUCLEATED RBCS 0 /100WBC; PLATELET COUNT* 244 thou/uL (150-400); POLYS 74.9 %; RBC 3.72 mil/uL (4.20-5.00); RDW-CV 13.6 % (10.5-14.5); WBC 10.7 thou/uL (4.0-11.0)
[2021-05-02 23:50] LABS: CREATININE 1.1 mg/dL (0.6-1.3); POTASSIUM 3.5 mmol/L (3.5-5.1)
[2021-05-02 23:54] LABS: ALBUMIN 3.6 g/dL (3.4-5.0); MAGNESIUM 1.5 mg/dL (1.8-2.4); TOTAL BILIRUBIN 0.6 mg/dL (<0.1-1.0); TOTAL PROTEIN 6.8 g/dL (6.4-8.2)
[2021-05-03] MEDS ORDERED: FAMOTIDINE 20 M20 MG PO (01:04)
[2021-05-03 02:10] LABS: URINE BILIRUBIN NEGATIVE (Negative); URINE BLOOD NEGATIVE (Negative); URINE CLARITY CLEAR; URINE COLOR YELLOW; URINE GLUCOSE-RANDOM TRACE (Negative); URINE KETONES 1+ (Negative); URINE LEUKOCYTES-REFLEX NEGATIVE (Negative); URINE NITRITE-REFLEX NEGATIVE (Negative); URINE PROTEIN NEGATIVE (Negative); URINE SPECIFIC GRAVITY 1.015 (1.005-1.030)
[2021-05-03 05:28] VITALS: BP 129/61
[2021-05-03 09:28] VITALS: BP 182/70
[2021-05-03 13:28] VITALS: BP 164/70
[2021-05-03] MEDS ORDERED: LISINOPRIL5 MG PO (15:40)
[2021-05-03] MEDS ORDERED: OXTELLAR XR300 MG PO ×2 (15:43→15:44)
[2021-05-03] MEDS ORDERED: NORVASC5 MG PO (15:45)
[2021-05-03 15:53] LABS: CALCIUM 9.6 mg/dL (8.5-10.1); POTASSIUM 3.7 mmol/L (3.5-5.1)
[2021-05-03 17:28] VITALS: BP 156/67
[2021-05-03] MEDS ORDERED: TOPROL XL100 MG PO (20:22)
[2021-05-03 21:28] VITALS: BP 144/62
--- NOTE | 2021-05-03 21:55 | NUR ---
NIGHT TIME MEDICATIONS AT BEDSIDE TO BE GIVEN TO PATIENT. PATIENT REFUSING TO TAKE ALL OF THE MEDICATIONS AT THIS TIME. EDUCATION PROVIDED TO PATIENT ON THE IMPORTANCE OF TAKING THESE MEDICATIONS. NO EVIDENCE OF LEARNING OBSERVED. THIS NURSE TO CHECK BACK WITH PATIENT LATER TO ADMINISTER MEDICATIONS.
--- NOTE | 2021-05-03 23:50 | NUR ---
THIS NURSE AT BEDSIDE TO OFFER NIGHT TIME MEDICATIONS AGAIN. PT EDUCATED ON THE IMPORTANCE OF TAKING THESE MEDICATIONS. PATIENT STATES SHE WILL TAKE ALL OF HER NIGHT TIME MEDICATIONS BESIDE THE FAMOTIDINE. THIS NURSE EDUCATED PATIENT ON THE IMPORTANCE OF WHY THIS MEDICATION WAS ORDERED BY THE DOCTOR. NO EVIDENCE OF LEARNING OBSERVED. PATIENT REFUSING FAMOTIDINE AT THIS TIME. THIS REFUSAL CHARTED IN EMAR.
[2021-05-04] VITALS (7 sets, daily range): BP systolic 144–177; BP diastolic 67–79
--- NOTE | 2021-05-04 06:56 | NUR ---
ASSUMED PT CARE AT 0045. ASSESSMENT COMPLETED CHARTED. ABLE TO MAKE NEEDS KNOWN. NO C/O PAIN OR DISCOMFORT. PT VERY PARTICULAR ABOUT HOW AND WHEN TO TAKE MEDS. ASKING TO TALK TO IRRIGATION PUMP INSTALLER, NURSING CHARGE, AND DOCTOR CONSTANTLY BECAUSE THEY ARE NOT DOING ORDERS THE WAY SHE WANTS THEM DONE. HAVE TRIED TO FIX MEDICATIONS A COUPLE TIMES DURING THE NIGHT IN ER. RESTING IN BED MOST OF THE NIGHT. WILL CONTINUE TO MONITOR.
[2021-05-04 12:03] LABS: CALCIUM 8.9 mg/dL (8.5-10.1); POTASSIUM 4.1 mmol/L (3.5-5.1)
--- NOTE | 2021-05-04 14:02 | EKG ---
[place] [address] ELECTROCARDIOGRAM REPORT Name: RAJWINDER MONTALVO Room: [address] ADM IN M.R.#: [id number] Admission: 05/04/21 Attend Phys: Beth Patterson Discharge: Date of : 49 Date of Service: 05/02/21 [facility] Report #: [id number] THIS REPORT FOR: //name// [facility] ED Test Date: 2021-05-02 Test Time: 23:31:46 Pat Name: RAJWINDER MONTALVO Department: Room: [facility] Gender: F Manager International: TRINO : 1945 Requested By: Brenda Berumen Order Number: [id number] MD: John Kang Measurements Intervals [place] Rate: 72 P: 56 DE: 176 QRS: 74 QRSD: 178 T: 31 QT: 467 QTc: 512 Interpretive Statements Sinus rhythm Right bundle branch block Compared to ECG 12/25/2020 02:43:17 No significant changes Electronically Signed On 05-04-2021 14:02:06 CDT by John Kang [email or web address] <ELECTRONICALLY SIGNED> By: John Kang MD, [facility] 05/04/21 1402 [id number] [id number] John Kang MD, [facility] /EPI
--- NOTE | 2021-05-04 15:10 | NUR ---
Pt is A&O. Resides at home alone. Independent. Pt has her groceries delivered and friends or cab provide transportation. Pt uses a walker for mobility. Pt states that she is to have a "loaner" wc delivered to her home tomorrow. Hx of [facility], Pt was to use them at [facility], CM to fax referral and orders at [facility]. Hx of SNF at [facility], Pt stated that she will never go back there. Anticipate dc today or tomorrow.
--- NOTE | 2021-05-04 16:29 | NUR ---
PT REMAINED ALERT AND ORIENTED. PT TEARFUL THIS MORNING, PT HAD CONCERNS REGARDING FLUIDS, MEDS AND DIET. WORKED ON FIXING ALL OF PATIENTS CONCERNS, PT STATES SHE IS HAPPY AT THIS TIME AND DOES NOT NEED ANYTHING ELSE FIXE OR CORRECTED AT THIS TIME. FALL RISK PRECAUTIONS IN PLACE. HOURLY ROUNDING COMPLETED.
[2021-05-05 01:12] VITALS: BP 129/61
[2021-05-05 04:24] VITALS: BP 116/47
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
--- NOTE | 2021-05-05 06:52 | NUR ---
PT MEDICAL RECORDS FROM [facility] HAVE ARRIVED AND ARE ON THE SECRETARYS DESK. 116 PAGES
[2021-05-05 07:30] VITALS: BP 161/62
[2021-05-05 08:37] LABS: CALCIUM 8.8 mg/dL (8.5-10.1); CREATININE 1.1 mg/dL (0.6-1.3); POTASSIUM 3.9 mmol/L (3.5-5.1)
[2021-05-05 08:49] LABS: URIC ACID* 3.1 mg/dL (2.6-7.2)
[2021-05-05 09:30] VITALS: BP 177/79
[2021-05-05 12:05] VITALS: BP 171/65
--- NOTE | 2021-05-05 13:35 | NUR ---
Pt continues to decline SNF and wants to dc home with [facility]. Therapies working with Pt. Anticipate dc in 1-2 days to home.
--- NOTE | 2021-05-05 16:10 | NUR ---
PT REMAINED ALERT AND ORIENTED. PT ANXIOUS REGARDING FEELING WEAK, SODIUM LEVEL, FOLIC ACID LEVEL. PT ENCOURAGED TO GET UP TO BEDSIDE COMMODE. PT STATES STILL FEELS VERY WEAK. FALL RISK PRECAUTIONS IN PLACE. HOURLY ROUNDING COMPLETED. CALL LIGHT WITHIN REACH.
[2021-05-06 04:45] LABS: HEMATOCRIT 31.4 % (37.0-47.0); HEMOGLOBIN 11.4 gm/dL (12.0-15.0); MCH 31.4 pg (26.0-34.0); MCHC 36.3 g/dL (28.0-37.0); MCV 86.5 fL (80.0-100.0); MPV 6.9 fl. (7.2-11.1); RBC 3.63 mil/uL (4.20-5.00); RDW-CV 13.4 % (10.5-14.5); WBC 9.9 thou/uL (4.0-11.0)
[2021-05-06 05:00] VITALS: BP 178/77
[2021-05-06 05:16] LABS: CALCIUM 8.9 mg/dL (8.5-10.1); CREATININE 1.2 mg/dL (0.6-1.3); MAGNESIUM 1.7 mg/dL (1.8-2.4); POTASSIUM 4.1 mmol/L (3.5-5.1)
--- NOTE | 2021-05-06 05:29 | CON ---
[address] [address] CONSULTATION Name: RAJWINDER MONTALVO Gladys Room: [address] IN M.R.#: [id number] Admission: 05/04/21 Attend Phys: Ryan Nair Discharge: Date of : 49 Report #: [id number] THIS REPORT FOR: cc: Liliam Lopez MD, Lin W. MD Vasudeva, Amita MD ~ DATE OF CONSULTATION: 05/05/2021 NEPHROLOGY CONSULTATION CONSULTING PHYSICIAN: ____. REASON FOR NEPHROLOGY CONSULTATION: Acute on chronic hyponatremia. REASON FOR ADMISSION: Nausea, vomiting. HISTORY OF PRESENT ILLNESS: This is a 75-year-old female with history of complex regional pain syndrome, history of CVA in the past, and history of SIADH. The patient does not follow with Nephrology, came in with nausea, vomiting and vertigo. She takes Trileptal or oxcarbazepine at home, which was continued. Neurology pretty much signed off on her as she follows with [facility] for her past history of strokes. Her nausea is better. She was not eating much prior to coming to the hospital, but now she is eating better. She was treated with IV normal saline and her sodium has improved to 123 on admission to 129 as of today. She also has chronic pain, which is not new for her. Also, she was incidentally found to have left renal atrophy and is going to get renal artery duplex today. ALLERGIES: GUAIFENESIN, CIPROFLOXACIN, DIPHENHYDRAMINE, ONDANSETRON. PAST MEDICAL HISTORY: Includes: 1. Type 2 diabetes. 2. SIADH. 3. Complex pain syndrome type 2. 4. SVT. 5. Depression. 6. Anxiety. 7. Appendectomy. 8. Tonsillectomy. 9. Adenoidectomy. 10. Cholecystectomy. 11. Pancreatic bowel disease. 12. PSVT. 13. Hypertension. 14. Thyroglossal duct cyst surgery. 15. [place] [address] CONSULTATION Name: RAJWINDER MONTALVO Room: [address]#: [id number] Admission: 05/04/21 Attend Phys: Ryan Nair Discharge: Date of : 49 Report #: [id number] 16. CVA. FAMILY HISTORY: Noncontributory. HOME MEDICATIONS: Include: 1. Metoprolol. 2. Lactobacillus. 3. Atorvastatin. 4. Clopidogrel. 5. Famotidine. 6. Amlodipine. 7. Also, she says that she takes salt tablets about 4 g a day. 8. She also takes Trileptal or oxcarbazepine. REVIEW OF SYSTEMS: As mentioned in the history of present illness. Otherwise, 10-point review of systems are negative. PHYSICAL EXAMINATION: VITAL SIGNS: Blood pressure is 161/62, pulse rate is 73, temperature 36.2, respiratory rate is 16, pulse ox 99% on room air. GENERAL: She is awake, alert, oriented x 3. HEAD AND EYES: Head atraumatic, normocephalic. Conjunctivae are normal. EARS, NOSE AND THROAT: Normal ears and nose. Mucous membranes are moist. NECK: There is no JVD. CHEST: Bilaterally clear to auscultation. No crackles or wheezing. CARDIOVASCULAR: S1, S2 normal. No murmurs. ABDOMEN: Soft, nondistended, nontender. LOWER EXTREMITIES: There is no lower extremity edema. NEUROLOGICAL: Grossly intact. PSYCHIATRIC: She does have anxiety. LABORATORY DATA: Hemoglobin 11.7. Sodium 129 this morning, potassium 3.9 this morning, creatinine 1.1. Other labs were reviewed. Uric acid was 3.1. IMAGING: Head CT and abdominal pelvic CT scan was reviewed. ASSESSMENT AND PLAN: 1. Acute on chronic hyponatremia. She has a history of syndrome of inappropriate antidiuretic hormone secretion, on fluid restriction and salt tablets at home. Acute hyponatremia in the setting of volume depletion and nausea and vomiting was probably contributing to increased ADH as well. She takes Trileptal, which can also cause syndrome of inappropriate antidiuretic hormone secretion. 2. [place] [address] CONSULTATION Name: RAJWINDER MONTALVO Room: [address] IN [facility]#: [id number] Admission: 05/04/21 Attend Phys: Ryan Nair Discharge: Date of : 49 Report #: [id number] 3. Vertigo. Neurology evaluated her and signed off on her. She follows with [facility]. 4. Nausea, which is now better. 5. Lack of appetite, which is now better. 6. Hypertension. 7. Incidental finding of left renal atrophy and right kidney hypertrophy. PLAN: 1. Sodium is already better at 129. Can stop IV fluids now, reinstated fluid restriction 1.5 liters a day and salt tablets can be started if sodium remains low. 2. I do not believe there is a need for checking a renal artery duplex for left renal atrophy because even if we find evidence of renal artery stenosis, this looks like chronic left renal atrophy and we will not benefit from any kind of intervention for this renal artery stenosis. We will defer to primary team. 3. I have ordered urine osmolality for her and already stopped her IV fluids. 4. From my standpoint, it is okay to discharge her. She can follow up with the physician who is treating her syndrome of inappropriate antidiuretic hormone secretion as outpatient. She is more than welcome to follow up with us. 5. Consider changing her Trileptal to alternative medicine if her sodium remains low. Thank you for this consultation. Discussed with the patient and the patient's nurse. We will be signing off now. Please call with any questions. <ELECTRONICALLY SIGNED> By: Davina Mejia MD 05/06/21 0529 [id number] [id number] Mejia MD /nt
--- NOTE | 2021-05-06 05:57 | NUR ---
PATIENT TRANSFERRED FROM TELEMETRY TO ROOM 313 AT APPROXIMATELY 2200. REPORT GIVEN FROM NIGHT NURSE OCT. 3 WEST NURSE AGREES WITH PRIOR ASSESSMENT. PATIENT ORIENTED TO UNIT. PATIENT HAS SLEPT WELL THROUGHOUT THE NIGHT. NO C/O PAIN. IV IN RIGHT FOREARM-SL. PATIENT HAS REMAINED NPO SINCE MIDNIGHT D/T POSSIBLE PROCEDURE TODAY. MEDICATIONS GIVEN ORDERED AND CHARTED. PATIENT INSTRUCTED TO USE CALL LIGHT WHEN NEEDING ASSISTANCE. HOURLY ROUNDS MADE. WILL CONTINUE WITH PLAN OF CARE AND NURSING TO MONITOR.
[2021-05-06 07:47] VITALS: BP 153/66
--- NOTE | 2021-05-06 14:29 | NUR ---
Anticiate dc either later today or tomorrow pending angiogram today. Plan home with [facility]
[2021-05-06 16:00] VITALS: BP 170/62
[2021-05-06 20:00] VITALS: BP 144/64
--- NOTE | 2021-05-07 07:56 | NUR ---
PATIENT SLEPT MOST OF THE NIGHT. IV REMAINS SALINE LOCKED. PATIENT HAS BEEN NPO SINCE MIDNIGHT FOR POSSIBLE PROCEDURE TODAY. WILL CONTINUE TO MONITOR.
[2021-05-07 08:40] VITALS: BP 190/78
--- NOTE | 2021-05-07 14:18 | NUR ---
Anticipate dc to home later today or tomorrow with [facility]
[2021-05-07 15:11] LABS: CALCIUM 9.2 mg/dL (8.5-10.1); CREATININE 0.9 mg/dL (0.6-1.3)
[2021-05-07 16:25] VITALS: BP 142/79
--- NOTE | 2021-05-07 17:25 | NUR ---
PATIENT RESTING IN CHAIR. PATIENT IS UP WITH MODERATE ASSIST OF ONE FOR TRANSFERS. PATIENT CONCERNED ABOUT METOPROLOL DOSING TODAY, SPOKE WITH DR VELEZ. PATIENT DENIES ANY PAIN. DISCHARGE PENDING REHAB ACCEPTANCE. PATIENT DENIES ANY NEEDS AT THIS TIME. CALL LIGHT WITHIN REACH.
[2021-05-07 20:40] VITALS: BP 140/63
[2021-05-08 04:39] LABS: HEMATOCRIT 30.3 % (37.0-47.0); HEMOGLOBIN 11.3 gm/dL (12.0-15.0); MCH 32.1 pg (26.0-34.0); MCHC 37.5 g/dL (28.0-37.0); MCV 85.8 fL (80.0-100.0); MPV 7.1 fl. (7.2-11.1); RBC 3.53 mil/uL (4.20-5.00); RDW-CV 13.7 % (10.5-14.5); WBC 7.8 thou/uL (4.0-11.0)
[2021-05-08 05:21] LABS: CALCIUM 8.8 mg/dL (8.5-10.1); POTASSIUM 4.1 mmol/L (3.5-5.1)
[2021-05-08 06:15] VITALS: BP 147/74
[2021-05-08 08:00] VITALS: BP 144/70
--- NOTE | 2021-05-08 08:06 | NUR ---
Alert and oriented x 4. She is up with stand by assist. She does have a particular way she takes her meds. this am she would only take he pepcid because she said she has to wait 2 hours. She has slept well.
--- NOTE | 2021-05-08 11:55 | NUR ---
Pt to dc to ARU today. Repeat covid ordered.
[2021-05-08] MEDS ORDERED: BENAZEPRIL HCL5 MG PO (14:27)
[2021-05-08] MEDS ORDERED: METOPROLOL SUCC25 M1 PO ×2 (14:27)
[2021-05-08] MEDS ORDERED: SODIUM CHLORIDE1 G2 PO (14:27)
[2021-05-08 16:00] VITALS: BP 115/45
--- NOTE | 2021-05-08 17:45 | NUR ---
PATIENT DISCHARGED TO INPATIENT REHAB. REPORT GIVEN TO ABHINAV. BELONGINGS PACKED AND PATIENT TRANSPORTED BY BED TO ROOM 326.
== END 2021-05-08 17:45 | DRG 644 ==
LOC: M.ERS 22:57 → M.TBA-ER 05-03 01:38 → M.2W 05-04 00:50 → M.3W 05-05 22:08
PROVIDERS: Emergency Medicine; Internal Medicine; ADMIT Internal Medicine; ATTEND Internal Medicine
DX: E22.2 Syndrome of inappropriate secretion of antidiuretic hormone (principal); G90.50 Complex regional pain syndrome I, unspecified; I10 Essential (primary) hypertension; K21.9 Gastro-esophageal reflux disease without esophagitis; Z20.822 Contact with and (suspected) exposure to COVID-19; E11.9 Type 2 diabetes mellitus without complications; F32.9 Major depressive disorder, single episode, unspecified; F41.9 Anxiety disorder, unspecified; E83.42 Hypomagnesemia; N26.1 Atrophy of kidney (terminal); N28.81 Hypertrophy of kidney; E53.8 Deficiency of other specified B group vitamins; I70.1 Atherosclerosis of renal artery; T50.905A Adverse effect of unspecified drugs, medicaments and biological substances, initial encounter; Z90.49 Acquired absence of other specified parts of digestive tract; Z86.73 Personal history of transient ischemic attack (TIA), and cerebral infarction without residual deficits; Z88.1 Allergy status to other antibiotic agents; Z88.8 Allergy status to other drugs, medicaments and biological substances; Z87.891 Personal history of nicotine dependence; Y92.89 Other specified places as the place of occurrence of the external cause

== ENCOUNTER 2021-05-08 12:49 | Inpatient (IN) | payer MEDICARE, OTHER ==
[~2021-05-08] VITALS: Ht 157.5 cm; Wt 65.8 kg
[~2021-05-08 12:49] MED LIST changes: +FAMOTIDINE 20 M20 MG PO; +LISINOPRIL5 MG PO; +OXTELLAR XR300 MG PO
[2021-05-08] MEDS ORDERED: BENAZEPRIL HCL5 MG PO (14:27)
[2021-05-08] MEDS ORDERED: METOPROLOL SUCC25 M1 PO ×2 (14:27)
[2021-05-08] MEDS ORDERED: SODIUM CHLORIDE1 G2 PO (14:27)
[2021-05-08 18:19] VITALS: BP 141/61
--- NOTE | 2021-05-08 19:00 | NUR ---
PATIENT ADMITTED FROM 3W. REPORT RECEIVED FROM MOHINDER KING. ALERT AND ORIENTED. NO COMPLAINTS OF PAIN. PICTURE TAKEN OF COCCYX WOUND, PLACED ON CHART. ADMISSION COMPLETE. UP TO BSC TO VOID. CALL LIGHT WITHIN REACH.
[2021-05-08 20:00] VITALS: BP 147/62
[2021-05-09 05:25] LABS: HEMOGLOBIN 10.5 gm/dL (12.0-15.0); MCH 31.2 pg (26.0-34.0); MCHC 36.3 g/dL (28.0-37.0); MPV 7.1 fl. (7.2-11.1); RBC 3.38 mil/uL (4.20-5.00); RDW-CV 13.4 % (10.5-14.5); WBC 7.3 thou/uL (4.0-11.0)
[2021-05-09 05:41] LABS: CALCIUM 8.9 mg/dL (8.5-10.1); CREATININE 1.2 mg/dL (0.6-1.3); POTASSIUM 4.2 mmol/L (3.5-5.1)
--- NOTE | 2021-05-09 06:06 | NUR ---
ASSUMED PT CARE AT 1930. PT ALERT AND ORIENTED X4. PT ARGUMENTATIVE ABOUT AMOUNT OF METOPOROL ORDERED. DR. VELEZ CONTACTED BY SHINE WORKER ROSANGELA Hannah AND ONE TIME ORDER RECEIVED. ADDITIONAL MED GIVEN. PT UP TO BSC WITH GAIT BELT AND WALKER TO VOID. ONE SMALL STOOL THIS SHIFT. PT SLEPT WELL OVERNIGHT. PT OPINIONATED ABOUT WHICH MEDS SHE WILL TAKE AT WHAT TIME WITH AM MEDS. CALL LIGHT IN REACH, BED ALARM ON FOR SAFETY. HOURLY ROUNDING IN PROGRESS, WILL CONTINUE TO MONITOR.
[2021-05-09 08:41] VITALS: BP 114/67; BP 151/63
[2021-05-09 19:00] VITALS: BP 115/57
--- NOTE | 2021-05-10 05:10 | NUR ---
ASSUMED PT CARE AT 1930. PT ALERT AND ORIENTED X4, FLAT AFFECT. DENIES PAIN. NO STOOL THIS SHIFT. SLEPT WELL OVERNIGHT. CALL LIGHT IN REACH, BED ALARM ON FOR SAFETY. HOURLY ROUNDING IN PROGRESS, WILL CONTINUE TO MONITOR.
[2021-05-10 07:12] VITALS: BP 164/78
[2021-05-10 15:54] LABS: CALCIUM 8.9 mg/dL (8.5-10.1); CREATININE 0.9 mg/dL (0.6-1.3); POTASSIUM 4.2 mmol/L (3.5-5.1)
--- NOTE | 2021-05-10 16:46 | NUR ---
PT UP WITH WALKER, GAIT BELT, AND ASSIST X1. DR VELEZ NOTIFIED OF INCREASED BP. NO NEW ORDERS. CALL LIGHT IN REACH. FALL PRECAUTIONS IN PLACE.
[2021-05-10 21:00] VITALS: BP 146/72
--- NOTE | 2021-05-11 05:58 | NUR ---
ASSUMED CARE AT 1920. ALERT AND ORIENTED. DENIED ANY PAIN. VERY PARTICULAR ABOUT MEDS AND TIMES GIVEN. ASKED TO TAKE SODIUM PILL AT BREAKFAST INSTEAD OF 0600. MIN ASSIST WITH GAIT BELT AND WALKER. UP TO BSC. STATES THAT NO LONGER HAS DIZZINESS. PT AWARE OF 1 LITER FLUID RESTRICTION. SLEPT OFF AND ON. CALL LIGHT IN REACH AND BED ALARM ON.
[2021-05-11 07:37] VITALS: BP 186/88
--- NOTE | 2021-05-11 15:36 | NUR ---
INITIAL ASSESSMENT: PATIENT ADMITTED TO THE [facility] ON 05/08/21 WITH A DIAGNOSIS OF DEBILITY. PT A&O. PRIOR TO ADMIT PT RESIDED AT HOME ALONE. PRIOR TO ADMIT PT INDEPENDENT WITH ADL'S, AND HAD HER GROCERIES DELIVERED. PT'S FRIENDS PROVIDED TRANSPORTATION OR SHE USED A CAB. PT USED A WALKER FOR MOBILITY. PT HAS A PAST HX OF HH WITH [facility]. PT HAS PAST SNF HX WITH [facility], BUT INFORMS THAT SHE WILL 'NEVER GO THERE AGAIN'. CM ORIENTED THE PT TO THE [facility] AND PROCESSES, RESIDENTS RIGHTS INFO, TEAM CONFRENCE, AND TO THE ROLE OF CM. CM WILL REMAIN AVAILABLE TO ASSIST AND FOLLOW NEEDED.
[2021-05-11 19:00] VITALS: BP 117/59
[2021-05-12 04:25] LABS: CALCIUM 9.3 mg/dL (8.5-10.1); CREATININE 1.2 mg/dL (0.6-1.3); POTASSIUM 4.2 mmol/L (3.5-5.1)
--- NOTE | 2021-05-12 04:55 | NUR ---
ASSUMED PT CARE AT 1930. PT ALERT AND ORIENTED X4, POLITE AND COOPERATIVE WITH CARES. DENIED PAIN. VERY PARTICULAR ABOUT MEDS AND TIMES GIVEN. UP WITH MIN ASSIST, GAIT BELT AND WALKER TO VOID. PT OBSERVING 1 LITER FLUID RESTRICTION. SLEPT MOST OF NIGHT. CALL LIGHT IN REACH, BED ALARM ON FOR SAFETY. HOURLY ROUNDING IN PROGRESS, WILL CONTINUE TO MONITOR.
[2021-05-12 07:50] VITALS: BP 193/88
[2021-05-12 09:35] VITALS: BP 173/75
[2021-05-12 10:32] VITALS: BP 153/76
--- NOTE | 2021-05-12 17:21 | NUR ---
THERAPIES ON HOLD THIS SHIFT PER DR. GAMEZ'S ORDERS. PATIENT BP ELEVATED THIS AM CHARTED, DR. PINA WAS NOTIFIED OF BP'S (INITIAL AND RECHECKS). PATIENT WAS INCONTINENT OF SMALL AMOUNT OF LIQUID STOOL PRIOR TO BP BEING TAKEN THIS AM. THIS NURSE WENT SEE PATIENT WHEN BP WAS INTIALLY ELEVATED THIS AM AND PATIENT STATED TO THIS NURSE THAT "IM AFRAID I HAD ANOTHER STROKE." PATIENT C/O DOUBLE VISION AT THAT TIME. NO SLURRED SPEECH OR INCREASED WEAKNESS NOTED. DR. PINA WAS NOTIFIED AND CAME TO SEE PATIENT X 2. BP CONTINUALLY CHECKED. NEURO WAS CONSULTED AND MRI HEAD/SPINE ORDERED THIS AFTERNOON, MRI HEAD RESULTED NOW AWAITING SPINE RESULTS TO CALL TO DR. OLIVEROS. PATIENT DID HAVE SMALL AMOUNT OF EMESIS THIS AFTERNOON AND DRY HEAVING THIS AM. PATIENT ALLERGIC TO ZOFRAN BUT STATED SHE DID NOT DO WELL WITH OTHER ANTI EMETICS SO PATIENT REFUSED. UP WITH ASSISTANCE TO BSC, VOIDING WITHOUT DIFFCULTY.
[2021-05-12 19:00] VITALS: BP 135/68
--- NOTE | 2021-05-13 04:50 | NUR ---
ASSUMED PT CARE AT 1930. PT ALERT AND ORIENTED X4. PT REMAINS PICKY ABOUT WHICH MEDS SHE WILL TAKE WHEN. SMALL EMESIS AFTER TAKING SODIUM. PT DECLINED OFFER OF ANTIEMETIC. COLD CLOTH AND NEW NECK BOLSTER PROVIDED FOR COMFORT. PT SLEPT WELL OVERNIGHT. CALL LIGHT IN REACH, BED ALARM ON FOR SAFETY. HOURLY ROUNDING IN PROGRESS, WILL CONTINUE TO MONITOR.
[2021-05-13 05:35] LABS: CALCIUM 8.9 mg/dL (8.5-10.1); CREATININE 1.1 mg/dL (0.6-1.3); POTASSIUM 3.6 mmol/L (3.5-5.1)
[2021-05-13 05:43] LABS: HEMATOCRIT 32.6 % (37.0-47.0); HEMOGLOBIN 11.8 gm/dL (12.0-15.0); MCH 31.1 pg (26.0-34.0); MCHC 36.4 g/dL (28.0-37.0); MCV 85.4 fL (80.0-100.0); MPV 7.3 fl. (7.2-11.1); RBC 3.81 mil/uL (4.20-5.00); RDW-CV 13.5 % (10.5-14.5); WBC 9.3 thou/uL (4.0-11.0)
[2021-05-13 07:50] VITALS: BP 172/80
--- NOTE | 2021-05-13 16:24 | NUR ---
PATIENT PARTICIPATED IN SOME SCHEDULED THERAPIES THIS SHIFT. UP WITH ASSISTANCE, GAIT BELT AND WALKER. VOIDING PER BSC. PER DR. OLIVEROS WILL SEE PATIENT THIS EVENING REGARDING MRI RESULTS, PATIENT NOTIFIED. NO COMPLAINTS THIS SHIFT. TEAM MEETING TODAY, CM DISCUSSED WITH PATIENT.
[2021-05-13 19:00] VITALS: BP 100/45
[2021-05-13 21:00] VITALS: BP 102/52
--- NOTE | 2021-05-14 05:10 | NUR ---
ASSUMED CARES AT 1920. ALERT AND ORIENTED. 1L FLUID RESTRICTION. PT LIKES MEDS TAKEN AT SEPARATE TIMES. DID WAKE UP AT 0400 WITH BOUT OF NAUSEA AND VOMITED SMALL CLEAR MUCOUS EMESIS. REFUSED ANTIEMETIC. BUT NAUSEA SUBSIDED SHORTLY AFTER. MIN ASSIST WITH GAIT BELT AND WALKER. UP TO BSC. SLEPT OTHERWISE. CALL LIGHT IN REACH AND BED ALARM ON.
[2021-05-14 08:00] VITALS: BP 157/69
--- NOTE | 2021-05-14 15:17 | NUR ---
PT SUP IN BED, THIS THERAPIST ANNOUNCED NAME AND DISCIPLINE UPON ENTRY, EXPLAINED THERAPY TIME, AND NEED TO GET OOB TO COMPLETE ACTIVITY, Pt REFUSED ANY PHYSICAL THERAPY IN BED OR OTHERWISE. EXPLAINED BENEFITS OF GETTING OOB AND WEAKNESS WITH NO MOBILITY, PT STATED UNDERSTANDING AND THAT SHE WAS NOT DOING THERAPY AT THIS TIME.
--- NOTE | 2021-05-14 17:02 | NUR ---
PATIENT REFUSED MOST THERAPIES THIS SHIFT. PATIENT STATED TOO DIZZY TO GET OUT OF BED, PATIENT UTILIZING BEDPAN WITH ASSISTANCE. NO BM NOTED THIS SHIFT. PATIENT REFUSED AFTERNOON BP MED DUE TO NAUSEA AND REFUSED SODIUM TABLET AT THAT TIME, DR. POTTER AWARE. DR. POTTER SPOKE WITH PATIENTS GRANDDAUGHTER THIS EVENING AND PLANNED FOR PATIENT TO GO TO SNF/[facility] AT DISCHARGE. PATIENT TURNING SELF IN BED. POOR APPETITE.
[2021-05-14 20:00] VITALS: BP 128/65
--- NOTE | 2021-05-15 07:27 | NUR ---
ASSUMED CARES AT 1920. ALERT AND ORIENTED. CAN BE IRRITABLE AT TIMES. VERY PARTICULAR WITH MEDS. C/O DIZZINESS WITH TRANSFERS. NO N/V OVERNIGHT. PT WAS UPSET AT TRILEPTAL DOSE CHANGE. EXPLAINED TO PT THE REASONING FOR DECREASE WAS TO HELP WITH HYPONATREMIA. PT WAS AWARE OF THIS BUT STATED THAT "ALL CHANGES NEED TO BE DISCUSSED WITH ME FIRST!" AND REFUSED ALL RECOMMENDATIONS FOR MED CHANGES. DR POTTER INFORMED OF ABOVE AND TRILEPTAL CHANGED BACK TO ORIGINAL DOSING. PT DID HAVE EPISODE OF WATERY STOOL INCONTINENCE REQUIRING COMPLETE BED CHANGE. MIN ASSIST WITH WALKER. UP TO BSC. SLEPT MOST OF THE NIGHT. CALL LIGHT IN REACH AND BED ALARM ON.
[2021-05-15 07:57] VITALS: BP 152/73
[2021-05-15 10:47] VITALS: BP 144/72
--- NOTE | 2021-05-15 10:47 | NUR ---
Notified by ot that pt had an assisted fall in her bathroom. Dr Roman notified. VSS. See charting. Denies any pain or injury.
[2021-05-15 10:55] LABS: CALCIUM 9.1 mg/dL (8.5-10.1); CREATININE 1.5 mg/dL (0.6-1.3); POTASSIUM 3.8 mmol/L (3.5-5.1)
--- NOTE | 2021-05-15 16:26 | NUR ---
TEAM CONFRENCE MEETING HELD THIS WEEK. PT AND GRANDDAUGHTER INFORMED OF MEETING AND PLAN TO BEGIN D/C PLANNING FOR THE PT SHE CONTINUES TO DECLINE THERAPIES. PT IN AGREEMENT WITH THIS PLAN. PLAN TO D/C PT TOMORROW WITH PT'S FAMILY ASSISTANCE AND COMPLETION OF FAMILY TRAINING. CM WILL REMAIN AVAILABLE TO ASSIST AND FOLLOW NEEDED.
--- NOTE | 2021-05-15 17:25 | NUR ---
PT WORKED WITH SPEECH THERAPY. ATTEMPTED TO WORK WITH PT/OT. N/V THIS AM. DENIED NEED FOR ZOFRAN. 1000ML FR. REPORTS CONTINUED DIZZINESS. DR PINA NOTIFIED OF ASSISTED FALL THIS AM. NO NEW ORDERS. CALL LIGHT IN REACH. FALL PRECAUTIONS IN PLACE.
--- NOTE | 2021-05-15 18:45 | NUR ---
OBSERVED PT WEARING AN EYE PATCH OVER HER L EYE. INQUIRED WHY SHE HAS THE EYE PATCH ON. PT STATED THAT SOMEONE TOLD HER THAT IT WILL HELP HER DOUBLE VISION. UNABLE TO RECALL WHO TOLD HER TO WEAR IT. REPORTS IT IS HELPING WITH HER VISION.
[2021-05-15 20:15] VITALS: BP 126/61
--- NOTE | 2021-05-16 04:23 | NUR ---
PT A&OX4, VSS ON ROOM AIR, PT UP WITH ASSIST GB & WALKER, 1L Q24H FLUID RESTRICTION MAINTAINED, NO CO PAIN OR DISCOMFORT. PT SLEEPING WELL, WILL CONTINUE TO MONITOR.
[2021-05-16 07:45] VITALS: BP 178/75
[2021-05-16] MEDS ORDERED: FOLIC ACID1 MG PO (15:29)
[2021-05-16 15:55] VITALS: BP 144/61
--- NOTE | 2021-05-16 17:26 | NUR ---
ALERT AND ORIENTED X4. SON HERE FOR FAMILY TRAINING. SON SAID HE WILL NOT BE ABLE TO TAKE PATIENT HOME. ALEX WAS NOTIFIED AND SAID SHE WILL TRY TO FIGURE OUT WHERE PATIENT CAN GO. DR AWARE PATIENT C/O DOUBLE VISION. PATIENT REMAINS ON 1000ML FLUID RESTRICTION. UP WITH 1 ASSIST GAIT BELT AND WALKER. USES CALL LIGHT FOR ASSIST. FALL PRECAUTIONS IN PLACE. BED ALARM AND CHAIR ALARM USED.
[2021-05-16 20:19] VITALS: BP 129/57
--- NOTE | 2021-05-17 04:11 | NUR ---
PT A&OX4, VSS ON ROOM AIR, UP WITH ASSIST, 1L FLUID RESTRICTION MAINTAINED. NO CO PAIN OR DISCOMFORT. PT SLEEPING WELL, WILL CONTINUE TO MONITOR.
[2021-05-17 07:45] VITALS: BP 140/74
[2021-05-17 12:27] VITALS: BP 136/58
--- NOTE | 2021-05-17 18:19 | NUR ---
ALERT AND ORIENTED X4. REPORT CALLED TO NURSE AT [facility]. HE WAS NOTIFIED OF MOST RECENT ASSESSMENT AND RECENT ABNORMAL LABS. DENIED NEED FOR PAIN MEDICATION. SON HERE WITH PATIENT THIS AM.
== END 2021-05-17 20:03 | DRG 948 ==
LOC: M.REH 12:49
PROVIDERS: Family Medicine; Internal Medicine; ADMIT Physical Medicine & Rehabilitation; ATTEND Physical Medicine & Rehabilitation
DX: R53.81 Other malaise (principal); E87.0 Hyperosmolality and hypernatremia; E11.9 Type 2 diabetes mellitus without complications; F32.9 Major depressive disorder, single episode, unspecified; F41.9 Anxiety disorder, unspecified; I10 Essential (primary) hypertension; I70.1 Atherosclerosis of renal artery; K21.9 Gastro-esophageal reflux disease without esophagitis; Z86.73 Personal history of transient ischemic attack (TIA), and cerebral infarction without residual deficits

== ENCOUNTER → 2021-10-20 | Outpatient (CLI) | payer MEDICARE, OTHER ==
[~2021-10-20] MED LIST changes: +BENAZEPRIL HCL5 MG PO; +FOLIC ACID1 MG PO; +METOPROLOL SUCC25 M1 PO; +SODIUM CHLORIDE1 G2 PO
== END ==
LOC: M.RAD 15:32
PROVIDERS: ATTEND Registered Nurse
DX: R06.02 Shortness of breath (principal)